=== PATIENT | male | born 1965 | race African-American/Black ===

== ENCOUNTER 2017-09-28 19:04 | Emergency (ER) | payer MEDICAID ==
[~2017-09-28] VITALS: Ht 193 cm; Wt 77.1 kg
[2017-09-28] MEDS ORDERED: NKM (19:12)
[2017-09-28 19:15] VITALS: BP 152/98
--- NOTE | 2017-09-28 19:41 | Emergency Room Report ---
History of Present Illness General Chief Complaint: Headache Source: Patient Present Illness HPI 52-year-old male presents to the emergency department complaining of 6/10 in severity diffuse headache 1 week. Patient states history of migraines he denies trauma or fall denies nausea, vomiting, sudden onset,Dizziness, neck pain or stiffness, fevers or chills. Denies visual or auditory changes denies auras. Denies neck or back pain. Allergies: Coded Allergies: No Known Allergies (Unverified , 09/28/17) Patient History Past Medical History: see triage record Past Surgical History: none Pertinent Family History: none Reviewed Nursing Documentation: PMH: Agreed; PSxH: Agreed Review of Systems All Other Systems: negative except mentioned in HPI Physical Exam Vital Signs Date Time Temp Pulse Resp B/P (MAP) Pulse Ox O2 Delivery O2 Flow Rate FiO2 09/28/17 19:07 98.3 77 16 152/98 95 Room Air 98.2 Sp02 EP Interpretation: reviewed, normal General Appearance: no apparent distress, alert, GCS 15, non-toxic, other - disheveled Head: normocephalic, atraumatic Eyes: bilateral eye normal inspection, bilateral eye PERRL ENT: hearing grossly normal, normal voice, uvula midline, moist mucus membranes Neck: full range of motion, no meningismus, no bony tend Respiratory: chest non-tender, lungs clear, normal breath sounds, no respiratory distress, no wheezing, speaking full sentences Cardiovascular #1: regular rate, rhythm, no edema, normal capillary refill Gastrointestinal: normal bowel sounds, non tender, soft Musculoskeletal: back normal, gait/station normal, normal range of motion, non- tender Neurologic: alert, oriented x3, responsive, motor strength/tone normal, sensory intact, speech normal, other - no facial droop. , grossly normal Psychiatric: judgement/insight normal Skin: normal color, no rash, warm/dry, well hydrated Medical Decision Making PA Attestation Dr. Flower is my supervising Physician whom patient management has been discussed with. Diagnostic Impression: Primary Impression: Headache Qualified Codes: R51 - Headache ER Course 52-year-old male presents to the emergency department complaining of 6/10 in severity diffuse headache 1 week. Patient states history of migraines he denies trauma or fall denies nausea, vomiting, sudden onset,Dizziness, neck pain or stiffness, fevers or chills. Denies visual or auditory changes denies auras. Denies neck or back pain. Ddx considered but are not limited to migraine, SAH, Pseudomotor Cerebri,, Mass lesion, Cluster DESHPANDE, Tension DESHPANDE, Post lumbar puncture DESHPANDE. Vital signs: are WNL, pt. is afebrile H&PE are most consistent with headache no focal neurological deficits. Pt. NAD and non-toxic in appearance. ORDERS: - none required at this time, dx is clinical. ED INTERVENTIONS: - Reglan PO - Excedrine migraine. - upon re-eval pt reports DESHPANDE has improved. Reports that he is homeless, will d/ c with homeless resources and information. - D/C pt. neurology follow up and that he needs to visit a PCP clinic for referral. will also give list of free/reduced cost local health clinics. -I do not identify an emergent condition at this time. With current presentation , pt. is stable for close outpatient follow up and conservative treatment. D/ w pt. to return promptly to ED with worsening or new symptoms.- Pt. (and or responsible constitution party) verbalizes' understanding and agreement with proposed treatment plan.proposed treatment plan. DISCHARGE: At this time pt. is stable for d/c to home. Will provide printed patient care instructions, and any necessary prescriptions. Care plan and follow up instructions have been discussed with the patient prior to discharge. Last Vital Signs Date Time Temp Pulse Resp B/P (MAP) Pulse Ox O2 Delivery O2 Flow Rate FiO2 09/28/17 19:15 98.2 77 16 152/98 95 Room Air 98.2 Disposition: HOME, SELF-CARE Condition: Stable Scripts Acetaminophen* (TYLENOL EXTRA STRENGTH*) 500 Mg Tablet 500 MG ORAL Q6H, #20 TAB 0 Refills Prov: Lizzie Handley 09/28/17 Patient Instructions: General Headache Without Cause Additional Instructions: Take medications as directed. Follow up with a Primary Care Provider in 3-5 days for Neurologist referral , even if your symptoms have resolved. --Please review list of primary care clinics, if you do not already have a primary care provider Return sooner to ED if new symptoms occur, or current symptoms become worse. - Please note that this Emergency Department Report was dictated using [employer] analyst technology software, occasionally this can lead to erroneous entry secondary to interpretation by the dictation equipment. Lizzie Handley Sep 28, 2017 19:41
[2017-09-28] MEDS ORDERED: Excedrin Migraine tab ORAL ONE (20:00)
[2017-09-28] MEDS ORDERED: TYLENOL EXTRA500 MG ORAL (21:10)
[2017-09-28 21:20] VITALS: BP 0/0
== END 2017-09-28 21:20 | disposition home or self-care (01) ==
LOC: EMR 19:20
DX: R51 Headache (principal)
CPT/HCPCS: 82962; 99283

== ENCOUNTER 2018-04-08 15:26 | Emergency (ER) | payer MEDICAID ==
[~2018-04-08] VITALS: Ht 193 cm; Wt 77.1 kg
[~2018-04-08 15:26] MED LIST: NKM; TYLENOL EXTRA500 MG ORAL
[2018-04-08] MEDS ORDERED: Acetaminophen 500mg (ES) tab ORAL ONE (16:00)
--- NOTE | 2018-04-08 16:12 | NUR ---
ED Nurse Note: RT Carlson at the bed side for breathing treatment.
[2018-04-08 16:13] VITALS: BP 156/91
[2018-04-08] MEDS: Ipratropium 0.02% Inh Soln 2.5ml UD HHN SCH ×2 (16:14→16:27)
[2018-04-08] MEDS: Albuterol ud Inhalation HHN SCH ×2 (16:14→16:27)
[2018-04-08] MEDS ORDERED: Promethazine/Codeine 5ml UD ORAL ONE (16:15)
--- NOTE | 2018-04-08 16:30 | NUR ---
ED Nurse Note: RT Salter at the bed side for breathing treatment.
--- NOTE | 2018-04-08 17:00 | NUR ---
ED Nurse Note: [place] and juice provided to patient. Oral intake tolerated.
[2018-04-08 17:20] VITALS: BP 146/80
[2018-04-08] MEDS ORDERED: TAMIFLU75 MG ORAL (17:43)
[2018-04-08] MEDS ORDERED: AMOXICILLIN500 MG ORAL (17:43)
[2018-04-08] MEDS ORDERED: TYLENOL EXTRA500 MG ORAL (17:43)
[2018-04-08 17:50] VITALS: BP 146/80
--- NOTE | 2018-04-08 17:50 | NUR ---
ED Nurse Note: Pt cleared by ER MD for discharge. ACI/prescription was given and explained to pt and verbalized understanding of teachings. Pt signed homeless DC list. All medical devices such as ID band removed. Pt is AAO x4, ambulatory and left with all personal belongings.
--- NOTE | 2018-04-08 19:27 | Emergency Room Report ---
History of Present Illness General Chief Complaint: Flu Like Symptoms Source: Patient Present Illness HPI 53-year-old male presents ED for evaluation. Presenting with cough and congestion 2 days. Febrile in triage. Cough is productive with yellowish phlegm. States that he "has the flu". Denies recent travel. Denies sick contacts. Notes history of asthma. Does not have an inhaler at this time. Denies chest pain. No other aggravating relieving factors. Denies any other associated symptoms Allergies: Coded Allergies: No Known Allergies (Unverified , 09/28/17) Patient History Past Medical History: asthma Past Surgical History: none Pertinent Family History: none Social History: Denies: smoking, alcohol use, drug use Immunizations: UTD Reviewed Nursing Documentation: PMH: Agreed; PSxH: Agreed Review of Systems All Other Systems: negative except mentioned in HPI Physical Exam Vital Signs Date Time Temp Pulse Resp B/P (MAP) Pulse Ox O2 Delivery O2 Flow Rate FiO2 04/08/18 15:42 101.5 93 22 146/92 96 Room Air 04/08/18 16:10 21 Sp02 EP Interpretation: reviewed, normal General Appearance: no apparent distress, alert, GCS 15, non-toxic Head: normocephalic, atraumatic Eyes: bilateral eye normal inspection, bilateral eye PERRL ENT: hearing grossly normal, normal pharynx, no angioedema, normal voice Neck: full range of motion, supple/symm/no masses Respiratory: chest non-tender, speaking full sentences, wheezing Cardiovascular #1: regular rate, rhythm, no edema Cardiovascular #2: 2+ carotid (R), 2+ carotid (L), 2+ radial (R), 2+ radial (L) , 2+ dorsalis pedis (R), 2+ dorsalis pedis (L) Gastrointestinal: normal bowel sounds, non tender, soft, non-distended, no guarding, no rebound Rectal: deferred Genitourinary: normal inspection, no CVA tenderness Musculoskeletal: back normal, gait/station normal, normal range of motion, non- tender Neurologic: alert, oriented x3, responsive, motor strength/tone normal, sensory intact, speech normal Psychiatric: judgement/insight normal, memory normal, mood/affect normal, no suicidal/homicidal ideation Reflexes: 3+ bicep (R), 3+ bicep (L), 3+ tricep (R), 3+ tricep (L), 3+ knee (R) , 3+ knee (L) Skin: normal color, no rash, warm/dry, well hydrated Lymphatic: no adenopathy Medical Decision Making Homeless Attestation I, The treating physician Dr. Foster, has assessed and agrees that patient is medically stable for discharge to an outpatient disposition. Diagnostic Impression: Primary Impression: Influenza-like symptoms ER Course Hospital Course 53-year-old male presents to ED complaining of cough, wheezing fever Differential diagnoses include: URI, bronchitis, asthma/COPD, pneumonia Clinical course Patient placed on stretcher. After initial history and physical I ordered tylenol, prednisone and nebulizer treatment. Chest x-ray shows no focal consolidation Upon reassessment patient states cough and symptoms have improved. Consideration for influenza. We'll prescribe Tamiflu Patient is homeless. Discharge instructions given. Referrals provided. Safe for discharge with close outpatient follow-up. Does not have a PMD. We'll provide referrals Diagnosis - influenza like symptoms Stable and discharged home with prescriptions for Rx tamiflu, amoxicillin, tylenol. Instructed to followup with PMD. Return to ED if symptoms recur or worsen Chest X-Ray Diagnostic Results Chest X-Ray Diagnostic Results : Chest X-Ray Ordered: Yes # of Views/Limited/Complete: 1 View Indication: Other - cough EP Interpretation: Yes Interpretation: no consolidation, no effusion, no pneumothorax, no acute cardiopulmonary disease Impression: No acute disease Electronically Signed by: Electronically signed by Dontrell Foster MD Last Vital Signs Date Time Temp Pulse Resp B/P (MAP) Pulse Ox O2 Delivery O2 Flow Rate FiO2 04/08/18 17:50 99.2 105 20 146/80 100 Room Air 04/08/18 16:40 21 Status: improved Disposition: HOME, SELF-CARE Condition: Stable Scripts Amoxicillin* (AMOXIL*) 500 Mg Capsule 500 MG ORAL THREE TIMES A DAY, #21 CAP Prov: Dontrell Foster MD 04/08/18 Oseltamivir Phosphate (Tamiflu) 75 Mg Capsule 75 MG ORAL TWICE A DAY for 5 Days, CAP Prov: Dontrell Foster MD 04/08/18 Acetaminophen* (TYLENOL EXTRA STRENGTH*) 500 Mg Tablet 500 MG ORAL Q8H PRN for Prn Headache/Temp > 101, #30 TAB 0 Refills Prov: Dontrell Foster MD 04/08/18 Referrals: [facility] Patient Instructions: Influenza, Adult, [id number] Dontrell Foster MD Apr 08, 2018 19:27
--- NOTE | 2018-04-09 09:21 | Diagnostic Imaging Report ---
Indication: Cough Technique: One view of the chest Comparison: none Findings: Ill-defined triangular opacity is seen in the inferior right lower lobe laterally, measures 4.7 x 4.3 cm. The pleural spaces are clear. The left lung is clear. The heart size is normal. The aorta is tortuous Impression: Right peripheral inferior upper lobe opacity. Likely a focus of infiltrate. Mass lesion also possible. Recommend follow-up radiographs to resolution, consider CT should lesion failed to resolve There is represents a discrepancy from the preliminary findings reported by the emergency room physician in the electronic medical record. Discrepant findings phoned to Dr. Marroquin at the time of interpretation
== END 2018-04-08 18:00 | disposition home or self-care (01) ==
LOC: EMR 17:51
DX: J11.1 Influenza due to unidentified influenza virus with other respiratory manifestations (principal); Z59.0 Homelessness
CPT/HCPCS: 71045; 94640; 94664; 99284; J7512

== ENCOUNTER 2018-06-13 13:46 | Emergency (ER) | payer MEDICAID ==
[~2018-06-13] VITALS: Ht 167.6 cm; Wt 63.5 kg
[~2018-06-13 13:46] MED LIST changes: +AMOXICILLIN500 MG ORAL; +TAMIFLU75 MG ORAL
[2018-06-13 13:47] VITALS: BP 132/76
--- NOTE | 2018-06-13 13:47 | NUR ---
ED Nurse Note: Edson krishna RA 62 c/o intractable foot pain, state that it has been an ongoing issue for "years" upon skin assessment patient does not have any wounds on the feet states it just hurts, patient is able to stadn up on both legs. patient does state that he uses a wheelchair to get aroundf but at time of arrival no wheelcahir. patient is alert and oriented x4, ambulatory with a steady gait, vSS
[2018-06-13] MEDS ORDERED: Ketorolac 30mg Inj IM ONE (14:00)
[2018-06-13] MEDS ORDERED: HYDROcodone/Acetamin 5/325 tab ORAL ONE (14:00)
--- NOTE | 2018-06-13 14:38 | NUR ---
per yaquelin from [facility] told patient that he will bring his wheelchair and his belonging but patient told him he doesnot want any of them just take him to a hospital
--- NOTE | 2018-06-13 14:42 | Emergency Room Report ---
History of Present Illness General Chief Complaint: Pain Source: Patient Present Illness HPI 53-year-old male presents ED for evaluation. Brought in by EMS from [place]. Complaining of bilateral foot pain. States he's had this pain for years. States he has "neuropathy". Does not know what medications he is supposed to take. Does not have these medications at this time. Pain is sharp, 9 out of 10 , nonradiating. States it is difficult to walk and he feels unsteady. No other aggravating relieving factors. Denies any other associated symptoms Allergies: Coded Allergies: No Known Allergies (Unverified , 09/28/17) Patient History Past Medical History: other - neuropathy Past Surgical History: none Pertinent Family History: none Social History: Denies: smoking, alcohol use, drug use Immunizations: UTD Reviewed Nursing Documentation: PMH: Agreed; PSxH: Agreed Nursing Documentation-PMH Past Medical History: No History, Except For Hx Cancer: Yes Review of Systems All Other Systems: negative except mentioned in HPI Physical Exam Vital Signs Date Time Temp Pulse Resp B/P (MAP) Pulse Ox O2 Delivery O2 Flow Rate FiO2 06/13/18 13:40 98.4 90 16 140/82 98 Room Air Sp02 EP Interpretation: reviewed, normal General Appearance: alert, GCS 15, non-toxic, lethargic Head: normocephalic, atraumatic Eyes: bilateral eye normal inspection, bilateral eye PERRL, bilateral eye other - icteric sclera ENT: hearing grossly normal, normal pharynx, no angioedema, normal voice Neck: full range of motion, supple/symm/no masses Respiratory: chest non-tender, lungs clear, normal breath sounds, speaking full sentences Cardiovascular #1: regular rate, rhythm, no edema Cardiovascular #2: 2+ carotid (R), 2+ carotid (L), 2+ radial (R), 2+ radial (L) , 2+ dorsalis pedis (R), 2+ dorsalis pedis (L) Gastrointestinal: normal bowel sounds, non tender, soft, non-distended, no guarding, no rebound Rectal: deferred Genitourinary: normal inspection, no CVA tenderness Musculoskeletal: back normal, gait/station normal, normal range of motion, non- tender Neurologic: alert, oriented x3, responsive, motor strength/tone normal, sensory intact, speech normal Psychiatric: judgement/insight normal, memory normal, mood/affect normal, no suicidal/homicidal ideation Reflexes: 3+ bicep (R), 3+ bicep (L), 3+ tricep (R), 3+ tricep (L), 3+ knee (R) , 3+ knee (L) Skin: normal color, no rash, warm/dry, well hydrated Lymphatic: no adenopathy Medical Decision Making Diagnostic Impression: Primary Impression: Failure to thrive Qualified Codes: R62.7 - Adult failure to thrive Additional Impressions: Elevated LFTs Jaundice Cholelithiasis Qualified Codes: K80.21 - Calculus of gallbladder without cholecystitis with obstruction Neuropathy Labs Test 06/13/18 14:40 White Blood Count 4.9 K/UL (4.8-10.8) Red Blood Count 4.40 M/UL (4.70-6.10) Hemoglobin 12.8 G/DL (14.2-18.0) Hematocrit 40.2 % (42.0-52.0) Mean Corpuscular Volume 91 FL (80-99) Mean Corpuscular Hemoglobin 29.0 PG (27.0-31.0) Mean Corpuscular Hemoglobin Concent 31.7 G/DL (32.0-36.0) Red Cell Distribution Width 16.3 % (11.6-14.8) Platelet Count 165 K/UL (150-450) Mean Platelet Volume 6.6 FL (6.5-10.1) Neutrophils (%) (Auto) 60.7 % (45.0-75.0) Lymphocytes (%) (Auto) 29.2 % (20.0-45.0) Monocytes (%) (Auto) 7.7 % (1.0-10.0) Eosinophils (%) (Auto) 1.6 % (0.0-3.0) Basophils (%) (Auto) 0.9 % (0.0-2.0) Sodium Level 135 MMOL/L (136-145) Potassium Level 3.5 MMOL/L (3.5-5.1) Chloride Level 101 MMOL/L (98-107) Carbon Dioxide Level 29 MMOL/L (21-32) Anion Gap 5 mmol/L (5-15) Blood Urea Nitrogen 10 mg/dL (7-18) Creatinine 0.9 MG/DL (0.55-1.30) Estimat Glomerular Filtration Rate > 60 mL/min (>60) Glucose Level 117 MG/DL (74-106) Calcium Level 8.6 MG/DL (8.5-10.1) Total Bilirubin 5.2 MG/DL (0.2-1.0) Direct Bilirubin 4.3 MG/DL (0.0-0.3) Aspartate Amino Transf (AST/SGOT) 267 U/L (15-37) Alanine Aminotransferase (ALT/SGPT) 89 U/L (12-78) Alkaline Phosphatase 124 U/L (46-116) Total Protein 10.2 G/DL (6.4-8.2) Albumin 1.9 G/DL (3.4-5.0) Globulin 8.3 g/dL Albumin/Globulin Ratio 0.2 (1.0-2.7) Other X-Ray Diagnostic Results Other X-Ray Diagnostic Results #1: X-Ray ordered: R foot # of Views/Limited Vs Complete: 3 View Indication: Pain EP Interpretation: Yes Interpretation: no dislocation, no soft tissue swelling, no fractures Impression: No acute disease Electronically Signed by: Electronically signed by Dontrell Foster MD Other X-Ray Diagnostic Results #2: X-Ray ordered: L foot # of Views/Limited Vs Complete: 3 View Indication: Pain EP Interpretation: Yes Interpretation: no dislocation, no soft tissue swelling, no fractures Impression: No acute disease Electronically Signed by: Electronically signed by Dontrell Foster MD CT/MRI/US Diagnostic Results CT/MRI/US Diagnostic Results : Imaging Test Ordered: CT A/P Impression Cholelithiasis. Mild extrahepatic biliary ductal dilatation without definite evidence of choledocholithiasis or downstream obstructive lesion. Nonetheless the possibility of occult downstream obstructive process should be considered given stated clinical history of jaundice. Consider MRCP or ERCP for further evaluation if clinically indicated Limited assessment of the GI tract, given absence of enteric contrast administration Distended stomach, without definite downstream obstructive lesion. Significance uncertain. Borderline hepatomegaly Last Vital Signs Date Time Temp Pulse Resp B/P (MAP) Pulse Ox O2 Delivery O2 Flow Rate FiO2 06/13/18 13:40 98.4 90 16 140/82 98 Room Air Status: improved Disposition: [facility] Condition: Serious Dontrell Foster MD Jun 13, 2018 14:42
[2018-06-13 14:58] LABS: BASOPHILS % (AUTO) 0.9 % (0.0-2.0); EOSINOPHILS % (AUTO) 1.6 % (0.0-3.0); HEMATOCRIT 40.2 % (42.0-52.0); HEMOGLOBIN 12.8 G/DL (14.2-18.0); LYMPHOCYTES % (AUTO) 29.2 % (20.0-45.0); MEAN CORPUSCULAR VOLUME 91 FL (80-99); MONOCYTES % (AUTO) 7.7 % (1.0-10.0); NEUTROPHILS % (AUTO) 60.7 % (45.0-75.0); PLATELET COUNT 165 K/UL (150-450); RED CELL DISTRIBUTION WIDTH 16.3 % (11.6-14.8); WHITE BLOOD COUNT 4.9 K/UL (4.8-10.8)
--- NOTE | 2018-06-13 14:58 | NUR ---
patients case management social worker pat camejo came to visit the patient . patient and case management social worker wishes to to place hin in hospiice care complex case manager name is nell tl# [phone]
[2018-06-13 15:00] LABS: ANION GAP 5 mmol/L (5-15); BLOOD UREA NITROGEN 10 mg/dL (7-18); CALCIUM 8.6 MG/DL (8.5-10.1); CARBON DIOXIDE 29 MMOL/L (21-32); CHLORIDE 101 MMOL/L (98-107); CREATININE 0.9 MG/DL (0.55-1.30); POTASSIUM 3.5 MMOL/L (3.5-5.1); SODIUM 135 MMOL/L (136-145)
[2018-06-13 15:10] LABS: ALANINE AMINOTRANSFERASE 89 U/L (12-78); ALBUMIN 1.9 G/DL (3.4-5.0); ALBUMIN/GLOBULIN RATIO 0.2 (1.0-2.7); ALKALINE PHOSPHATASE 124 U/L (46-116); ASPARTATE AMINO TRANSFERASE 267 U/L (15-37); BILIRUBIN,TOTAL 5.2 MG/DL (0.2-1.0)
[2018-06-13 15:13] LABS: BILIRUBIN,DIRECT 4.3 MG/DL (0.0-0.3)
[2018-06-13] MEDS ORDERED: Isovue-300 100ml vial INJ PRN (15:30)
[2018-06-13 16:08] VITALS: BP 153/86
--- NOTE | 2018-06-13 16:08 | NUR ---
ED Nurse Note: Patient has signed transfer forms
--- NOTE | 2018-06-13 16:16 | Diagnostic Imaging Report ---
Clinical Indication: Abdominal pain, abnormal liver function tests, jaundice Technique: No oral contrast utilized, per emergency room physician request IV administration nonionic contrast. Venous phase spiral acquisition obtained through the abdomen and pelvis. Multiplanar reconstructions were generated. Total dose length product 515.79 mGycm. CTDIvol(s) 9.27 mGy. Dose reduction achieved using automated exposure control Comparison: none Findings: Lack of enteric contrast limits assessment of the GI tract. Exam is further limited by paucity of body fat limiting inherent soft tissue contrast. The distal esophagus is unremarkable. The stomach is distended with food and fluid. The duodenum is unremarkable. The appendix is normal. No evidence of diverticulosis or diverticulitis. No small bowel distention. No free or loculated intraperitoneal gas or fluid. The gallbladder contains gallstones. There is equivocally trace pericholecystic fluid. The common bile duct is mildly dilated, measuring 9 mm diameter. No definite intraductal calculi or downstream obstructive lesion demonstrated. The liver is borderline enlarged, demonstrates multiple small fluid attenuation cysts, as well as multiple subcentimeter low-attenuation lesions which are too small to characterize. The pancreas, spleen, adrenals, kidneys are unremarkable. The bladder demonstrates apparent wall thickening, although this is likely and artifact of incomplete distention. The right testicle is incompletely descended, appears to be in the distal inguinal canal rather than within the scrotum. The included lung bases demonstrate minimal posterior dependent atelectatic changes. The bones are remarkable for evidence of prior right femoral surgery with evidence of a removed medullary nichole. An intramuscular lipoma is seen within the anterolateral right thigh musculature. The aorta is normal in caliber but tortuous. There are mild degenerative changes of the lower lumbar spine. Impression: Cholelithiasis. Mild extrahepatic biliary ductal dilatation without definite evidence of choledocholithiasis or downstream obstructive lesion. Nonetheless the possibility of occult downstream obstructive process should be considered given stated clinical history of jaundice. Consider MRCP or ERCP for further evaluation if clinically indicated Limited assessment of the GI tract, given absence of enteric contrast administration Distended stomach, without definite downstream obstructive lesion. Significance uncertain. Borderline hepatomegaly Hepatic cysts. Subcentimeter low-attenuation liver lesions, too small to characterize, most likely benign simple cysts or bile hamartomas. No further follow-up necessary Apparent bladder wall thickening, most likely artifact of incomplete distention, but the possibility of Evidence of incomplete descent of the right testicle. Correlate with clinical findings Other findings as noted, including degenerative lumbar spondylosis, anterolateral right thigh musculature intramuscular lipoma, evidence of prior right femoral nichole placement and subsequent removal, posterior dependent pulmonary atelectatic changes The CT scanner at [facility] is accredited by the [employer] and the scans are performed using protocols designed to limit radiation exposure to as low as reasonably achievable to attain images of sufficient resolution adequate for diagnostic evaluation.
--- NOTE | 2018-06-13 16:31 | NUR ---
ED Nurse Note: unable to give report via phone, called 4 times, all voicemail. left voicemail with andrew's number.
--- NOTE | 2018-06-13 16:35 | Diagnostic Imaging Report ---
Indication: Right foot pain Technique: 3 views ] foot Comparison: none Findings: No acute fractures. No dislocations. There is hammertoe deformity of the second through fifth digits. This somewhat limits evaluation, as it obscures visualization of the phalanges Impression: No acute process
--- NOTE | 2018-06-13 16:36 | Diagnostic Imaging Report ---
Indication: Left foot pain Technique: 3 views left foot Comparison: none Findings: There is hammertoe deformity of the second through fifth digits. This somewhat limits visualization of the phalanges. No acute fractures. No dislocations. The joint spaces are preserved Impression: No acute process
--- NOTE | 2018-06-13 17:02 | NUR ---
ED Nurse Note: GAve report to [place]
[2018-06-13 18:32] VITALS: BP 161/94
--- NOTE | 2018-06-13 18:33 | NUR ---
ED Nurse Note: Transport still not here at 1833
[2018-06-13 19:30] VITALS: BP 152/80
--- NOTE | 2018-06-13 19:30 | NUR ---
ED Nurse Note: Patient transferred to hospital accompanied by ambulance personnel, patient reports of no pain at this time
== END 2018-06-13 19:30 | disposition short-term general hospital (02) ==
LOC: EDBD 13:46 → EMR 14:17
DX: R17 Unspecified jaundice (principal); R62.7 Adult failure to thrive; K80.21 Calculus of gallbladder without cholecystitis with obstruction; R79.89 Other specified abnormal findings of blood chemistry; G62.9 Polyneuropathy, unspecified; Z85.9 Personal history of malignant neoplasm, unspecified
CPT/HCPCS: 36415; 73630; 74177; 80053; 82248; 82962; 85025; 96360; 96372; 99284; J1885; Q9967